=== PATIENT | female | born 1985 | race Two or more races ===

== ENCOUNTER 2024-01-22 22:48 | Outpatient (CLI) | payer OTHER ==
[2024-01-22 21:54] VITALS: BP 113/75
[2024-01-22] MEDS ORDERED: PRENATAL TABLE1 EAC1 PO (22:50)
[2024-01-22] MEDS ORDERED: GLUMETZA500 MG PO (22:51)
[2024-01-22] MEDS ORDERED: PEPCID20 MG PO (22:51)
[2024-01-22] MEDS ORDERED: PROBIOTICO (22:51)
[2024-01-22] MEDS ORDERED: VITAMIN D3 (22:52)
[2024-01-22] MEDS ORDERED: RINGERS SOLUTION,LACTATED 1,000 ML IV SCH (23:00)
[2024-01-22 23:15] VITALS: BP 90/60
[2024-01-23 04:00] VITALS: BP 123/78
[2024-01-23 04:50] VITALS: BP 123/78
== END 2024-01-23 04:50 | disposition home or self-care (01) ==
LOC: OBS/DEL 22:48
PROVIDERS: ATTEND Obstetrics & Gynecology
DX: O36.8130 Decreased fetal movements, third trimester, not applicable or unspecified (principal); Z3A.36 36 weeks gestation of pregnancy

== ENCOUNTER 2024-02-04 15:30 | Inpatient (IN) | payer OTHER ==
[~2024-02-04] VITALS: Ht 167.6 cm; Wt 3.6 kg
[~2024-02-04 15:30] MED LIST: GLUMETZA500 MG PO; PEPCID20 MG PO; PRENATAL TABLE1 EAC1 PO; PROBIOTICO; VITAMIN D3
[2024-02-09 23:39] VITALS: BP 151/84
[2024-02-10] MEDS ORDERED: RINGERS SOLUTION,LACTATED 1,000 ML IV SCH ×2 (00:30→09:30)
[2024-02-10 01:28] LABS: HEMATOCRIT 34.9 % (36.0-45.00); HEMOGLOBIN 11.8 g/dL (12.0-15.00); MEAN CELL VOLUME 79.2 fL (80.00-100.00); MEAN CORPUSCULAR HEMOGLOBIN 26.7 pg (27.00-32.0); MEAN CORPUSCULAR HGB CONC 33.7 g/dl (32.0-36.0); PLATELET COUNT 299 K/uL (150-450); RED BLOOD COUNT 4.41 M/uL (4.00-6.00)
[2024-02-10 01:48] LABS: INR 0.95; PARTIAL THROMBOPLASTIN TIME 28.1 SECONDS (22.0-34.0); PROTHROMBIN TIME 10.4 SECONDS (9.0-11.5)
[2024-02-10 02:02] LABS: BILIRUBIN TOTAL 0.29 mg/dL (0.3-1.2); CALCIUM 9.5 mg/dL (8.5-10.1); CREATININE SERUM 0.68 mg/dL (0.55-1.02); GFR 97.9; GLOBULINA 3.8 G/DL (2.4-3.5); POTASSIUM 3.93 mEq/L (3.5-5.1); TOTAL PROTEIN 6.8 gm/dL (6.4-8.2)
[2024-02-10] MEDS ORDERED: MORPHINE SULFATE 4 MG/ML CARTRIDGE IV ONE (05:30)
[2024-02-10] MEDS ORDERED: ONDANSETRON HCL 2 MG/ML VIAL IV SCH ×2 (05:30→12:00)
[2024-02-10] MEDS ORDERED: OXYTOCIN 20 UNITS/500ML RL PIGGYBAG IV SCH (09:15)
[2024-02-10] MEDS ORDERED: CEFAZOLIN SODIUM 2,000 MG in 0.9 % SODIUM CHLORIDE 100 ML IV SCH (09:26)
[2024-02-10] MEDS ORDERED: MORPHINE SULFATE 4 MG/ML CARTRIDGE IV PRN (09:30)
[2024-02-10] MEDS ORDERED: OXYTOCIN 1,000 ML IV ONE (09:30)
[2024-02-10] MEDS ORDERED: MORPHINE SULFATE 4 MG/ML VIAL IV ONE (10:05)
[2024-02-10] MEDS ORDERED: KETOROLAC TROMETHAMINE 30 MG VIAL IV SCH (12:00)
[2024-02-10] MEDS ORDERED: ACETAMINOPHEN 500 MG GEL..CAP PO SCH (12:00)
[2024-02-10 12:30] VITALS: BP 119/75
[2024-02-10 16:33] VITALS: BP 119/79
[2024-02-10] MEDS ORDERED: GABAPENTIN 300 MG CAPSULE PO SCH (17:00)
[2024-02-10] MEDS ORDERED: SIMETHICONE 125 MG CAPSULE PO SCH (17:00)
[2024-02-11 01:33] VITALS: BP 111/60
[2024-02-11 05:27] VITALS: BP 100/62
[2024-02-11 07:04] LABS: MEAN CELL VOLUME 79.3 fL (80.00-100.00); MEAN CORPUSCULAR HGB CONC 34.3 g/dl (32.0-36.0); PLATELET COUNT 238 K/uL (150-450); RED BLOOD COUNT 2.81 M/uL (4.00-6.00); RED CELL DISTRIBUTION WIDTH 14.2 % (11.5-14.5)
[2024-02-11 07:16] LABS: HEMATOCRIT 22.2 % (36.0-45.00)
[2024-02-11 07:17] LABS: HEMOGLOBIN 7.6 g/dL (12.0-15.00)
[2024-02-11] MEDS ORDERED: OxyCODONE HCL 5 MG TABLET (ROXICODONE) PO PRN (08:00)
[2024-02-11] MEDS ORDERED: KETOROLAC TROMETHAMINE 10 MG TABLET PO SCH (08:00)
[2024-02-11] MEDS ORDERED: FF) RHO(D) IMMUNE GLOBULIN (POM) IM ONE (08:15)
[2024-02-11] MEDS ORDERED: DOCUSATE SODIUM 100MG CAP PO SCH (09:00)
[2024-02-11 09:42] VITALS: BP 120/79
[2024-02-11] MEDS ORDERED: IRON FUM,PS/FOLIC/BCOMP,C NO.9 1 CAP CAPSULE PO NR (11:00)
[2024-02-11 16:26] VITALS: BP 135/82
[2024-02-11 20:02] LABS: MEAN CELL VOLUME 79.8 fL (80.00-100.00); MEAN CORPUSCULAR HEMOGLOBIN 26.9 pg (27.00-32.0); MEAN CORPUSCULAR HGB CONC 33.7 g/dl (32.0-36.0); PLATELET COUNT 286 K/uL (150-450); RED BLOOD COUNT 3.01 M/uL (4.00-6.00); RED CELL DISTRIBUTION WIDTH 14.4 % (11.5-14.5)
[2024-02-11 20:03] LABS: HEMOGLOBIN 8.1 g/dL (12.0-15.00)
[2024-02-12] VITALS: BP 118/76
[2024-02-12] MEDS ORDERED: IRON FUM,PS/FOLIC/BCOMP,C NO.9 1 CAP CAPSULE PO SCH (09:00)
[2024-02-12 10:59] VITALS: BP 117/73
== END 2024-02-12 13:58 | disposition home or self-care (01) | DRG 788 ==
LOC: LDR 02-10 00:08 → OB/GYN 02-10 00:08 → LDR 02-10 00:23 → OB/GYN 02-10 10:58 → SURG 02-13 15:30
PROVIDERS: Obstetrics & Gynecology; ADMIT Obstetrics & Gynecology; ATTEND Obstetrics & Gynecology
PROC: 4A1HXCZ Monitoring of Products of Conception, Cardiac Rate, External Approach (ICD-10-PCS; 2024-02-10)
PROC: 10D00Z1 Extraction of Products of Conception, Low, Open Approach (ICD-10-PCS; principal; 2024-02-10 13:30)
DX: O82 Encounter for cesarean delivery without indication (principal); O62.1 Secondary uterine inertia; Z3A.39 39 weeks gestation of pregnancy; Z37.0 Single live birth; Z20.822 Contact with and (suspected) exposure to COVID-19